=== PATIENT | male | born 1955 | race Caucasian/White ===

== ENCOUNTER 2017-03-11 09:58 | Emergency (ER) | payer OTHER, SELFPAY | END 2017-03-11 11:18 | disposition home or self-care (01) | PROVIDERS: Emergency Provider Nurse Practitioner; Family Provider Internal Medicine; Visit Provider Nurse Practitioner | DX: J32.9 Chronic sinusitis, unspecified (principal); I10 Essential (primary) hypertension | CPT/HCPCS: 96372; 99201 ==

== ENCOUNTER → 2017-07-21 13:41 | Outpatient (CLI) | payer OTHER, SELFPAY | PROVIDERS: PCP Internal Medicine; Visit Provider Nurse Practitioner Family | DX: Z02.4 Encounter for examination for driving license (principal) ==

== ENCOUNTER → 2017-09-16 07:16 | Outpatient (CLI) | payer OTHER, SELFPAY ==
--- NOTE | 2017-09-16 07:20 | CA_ITS ---
PROCEDURE: 2-D M-mode and color Doppler study INDICATIONS FOR THE TEST: Chest pain + COPD Heart Murmur+ Tobacco Smoking Palpitations Fatigue Syncope Edema Hypertension+Diabetes Mellitus Rheumatic Fever SOB GARCIA Obesity Hyperlipidemia Family History HD+ Additional History PATIENT INFORMATION HEIGHT: 73 WEIGHT:220 GENDER: Male B/P:163/87 2-D/M-MODE INTERPRETATION: 2-D MEASUREMENTS OBSERVED VALUES IN CMS Right Ventricular Dimension (RVDd) 3.2 Interventricular Septum (Thickness)(IVsd) 1.6 Left Ventricular Internal Dimensions(LVIDd) 4.6 Left Ventricular Posterior Wall (Thickness)(LVPWd) 1.2 Aortic Root 3.5 Aortic Cusp Separation 1.8 Left Atrial Dimensions (LAD) 4.9 2D 1. Left atrium is mildly enlarged, left ventricle is normal size, mild concentric left ventricular hypertrophy, visually estimated ejection fraction 55% with no obvious regional wall motion abnormality. 2. The right atrium and right ventricle are normal size and contractility. 3. The aortic valve is thickened and calcified leaflet continue to display mobility. 4. The mitral and tricuspid valve are structurally normal. 5. The pulmonic valve is poorly visualized. 6. No significant pericardial effusion noted. DOPPLER INTERROGATION: Doppler interrogation of the aortic, mitral and tricuspid valve reveals presence of mild aortic stenosis, the mean gradient across valve is only 10 mmHg, there is no aortic insufficiency, there is mild mitral and tricuspid regurgitation, tricuspid regurgitant jet velocity is insufficient for calculation of the right ventricular systolic pressure. CONCLUSION: 1. Normal left ventricular size, mild concentric left ventricular hypertrophy, visually estimated ejection fraction 55% with no obvious regional wall motion abnormality, grade 1 diastolic dysfunction seen with tissue Doppler evidence of raised left atrial pressure. 2. Thickened and calcified aortic valve with mild aortic stenosis there is no aortic insufficiency. 3. Mild mitral and tricuspid addition 4. No significant pericardial effusion noted.
--- NOTE | 2017-09-16 07:20 | NM_ITS ---
History and Indications: Hypertension, hyperlipidemia, family history, chest pain and shortness of breath Procedure: Patient exercised on Lionel protocol 7 minutes and 30 seconds, resting heart rate was 58 bpm resting blood pressure 191/91, with exercise maximum heart rate achieved was 1 40 bpm is equal to 88% of the maximum predicted heart rate and a blood pressure was 235/84, test was stopped due to shortness of breath, patient denied any complained of chest pain. Patient has good exercise capacity achieved 10.1mets of workload on treadmill, the blood pressure response to exercise was hypertensive. Electrocardiogram: Resting electrocardiogram showed sinus bradycardia nonspecific T wave changes, with excercise occasional premature ventricular complex seen, there is [address] segment depression noted from the baseline EKG. The EKG portion of the exercise Myoview is positive for ischemia. Cardiac stress and resting SPECT images: Cardiac stress and rest SPECT images were obtained using technetium 99 Myoview 32.5 mCi at stress gated 10.7 mCi at rest. Gated SPECT further analysis of segmental wall motion and calculation of the ejection fraction also done. Cardiac stress and rest SPECT images show uniform myocardial activity without any segmental perfusion abnormality, computer derived ejection fraction is 53% with no obvious regional wall motion abnormality, right ventricle is normal size and contractility. Conclusion: 1. The EKG portion of the exercise Myoview is positive for ischemia, patient has good exercise capacity achieved 10.1mets of workload on treadmill, the blood pressure response to exercise was hypertensive, test was started due to shortness of breath. 2. No obvious scintigraphic evidence of reversible ischemia seen at this level of exercise, computer derived ejection fraction is 53% with no obvious regional wall motion abnormality, right ventricle is normal size and contractility.
== END ==
PROVIDERS: Family Provider Internal Medicine; PCP Internal Medicine; Visit Provider Internal Medicine Cardiovascular Disease
DX: R94.31 Abnormal electrocardiogram [ECG] [EKG] (principal); E78.4 Other hyperlipidemia; I10 Essential (primary) hypertension; R07.9 Chest pain, unspecified; Z82.49 Family history of ischemic heart disease and other diseases of the circulatory system
CPT/HCPCS: 78452; 93017; 93306; A9502

== ENCOUNTER → 2020-03-31 10:06 | Outpatient (CLI) | payer OTHER, SELFPAY ==
--- NOTE | 2020-03-31 10:14 | CA_ITS ---
APPROVED REPORT EXAM: Comprehensive 2D, Doppler, and color-flow Echocardiogram Cardiopulmonary Technician: Lorri Graves CRT Ht: 6 ft 1 in Wt: 230lbs BSA: 2.28 BP: 163/87 mmHg Indications: ABN EKG, CP, MURMUR, HTN, HLD 2D Dimensions Aortic Root 2.70 cm LVOT 1.76 cm (M/F) 1.5-2.5 M-Mode Dimensions RVDd 2.66 cm (0.9-2.6) LA Diam 5.28 cm (1.9-4.0) LVDd 5.06 cm (3.5-5.7) Ao Diam 3.83 cm (2.0-3.7) LVDs 3.53 cm (3.5-5.7) IVSd 2.01 cm (0.6-1.1) PWd 0.80 cm (0.6-1.1) EF (Teich) 57.30% FS 30.20% EDV (Teich) 121.60 mL ESV (Teich) 51.90 mL LV Diastology E Decel Time 197.00 (160-240 msec) E/A Ratio 1.28 MED E' 7.40 (< 7 cm/sec) MED A' 13.80 cm/s E'/MED E' Ratio 13.55 (>14) LAT E' 8.00 (<10 cm/sec) LAT A' 10.30 cm/s E/LAT E' Ratio 12.54 (>14) Aortic Valve LVOT Max 144.00 (70-110 cm/s) LVOT VTI 29.48 cm AoV Peak Tenzin. 231.00 (50-130 cm/s) AO Peak GR. 21.50 mmHg AO Mean GR. 11.20 (<5 mmHg) AO VTI 42.94 (18-25 cm) CHUCKIE (VTI) 1.67 (2.5-4.5 cm2) Mitral Valve MV A Velocity 78.00 (40-130 cm/s) E/A Ratio 1.28 MV Decel. Time 197.00 (160-240 ms) Pulmonary Valve PV Peak Velocity 94.00 (50-150 cm/s) Tricuspid Valve TR P. Velocity 426.00 cm/s RAP Estimate 10.00 mmHg RVSP 82.70 mmHg Left Ventricle Left atrium is mildly enlarged, left ventricle is normal size, mild concentric left ventricular hypertrophy, visually estimated ejection fraction 55% with no regional wall motion abnormality. Diastolic parameters are within normal range. Right Ventricle Right atrium and right ventricle are normal size and contractility. Aortic Valve Aortic valve is thickened and calcified with mean gradient across aortic valve of 13 mmHg, valve area 1.6 cm??? represents mild aortic stenosis, there is no aortic insufficiency. Mitral Valve Mitral valve is grossly normal, there is trace mitral regurgitation. Tricuspid Valve Tricuspid valve grossly normal, there is mild tricuspid regurgitation. Calculated right ventricular systolic pressure is 41 mmHg. Pulmonic Valve Pulmonic valve is poorly visualized. Great Vessels Aortic root is normal size. Pericardium No significant pericardial effusion noted. Conclusion 1. Mildly enlarged left atrium, normal left ventricular size, mild concentric left ventricular hypertrophy, visually estimated ejection fraction 55% with no regional wall motion abnormality, diastolic parameters are within normal range. 2. Thickened and calcified aortic valve with mild aortic stenosis, there is no aortic insufficiency. 3. Mild mitral and tricuspid regurgitation. 4. No significant pericardial effusion noted. Electronically signed by : Ronaldo Cancino, 03/31/2020 11:54:21
== END ==
LOC: RT 10:10
PROVIDERS: PCP Internal Medicine; Visit Provider Internal Medicine
DX: I50.21 Acute systolic (congestive) heart failure (principal)
CPT/HCPCS: 93306

== ENCOUNTER → 2020-09-25 09:19 | Outpatient (CLI) | payer OTHER, SELFPAY ==
--- NOTE | 2020-09-25 | ECG_ITS ---
APPROVED REPORT Exam: Resting ECG HR:126 bpm ECG Measurements Heart Rate 126 AXES QRSd 72 QRS 23 QT 308 T 49 QTc 446 Conclusion Atrial fibrillation with rapid ventricular response Poor R Wave Progression Abnormal ECG Electronically signed by : Colton Rosario, 09/25/2020 16:51:42
== END ==
PROVIDERS: PCP Internal Medicine; Visit Provider Internal Medicine
DX: I49.9 Cardiac arrhythmia, unspecified (principal); I10 Essential (primary) hypertension
CPT/HCPCS: 93005

== ENCOUNTER 2020-10-27 11:56 | Day surgery (SDC) | payer OTHER, SELFPAY ==
[2020-10-27 12:01] VITALS: BMI 33.0
--- NOTE | 2020-10-27 12:08 | CA_ITS ---
APPROVED REPORT EXAM: Comprehensive 2D, Doppler, and color-flow Echocardiogram Roll Weigher: RT Armando(R) Ht: 6 ft 1 in Wt: 250lbs BSA: 2.37 BP: 146/95 mmHg Indications: AFIB, edema, HTN, DM, family history of HD, hyperlipidemia Procedure After obtaining informed consent, patient underwent transesophageal echo in the [facility]. Type of Sedation : Conscious Sedation Sedation was administered by Yvon Galeas C.R.N.A. Transesophageal probe was inserted and advanced into esophagus without difficulty by Dr. Henrik Ramos. The SHIN was performed without complications. Synchronized Cardioversion attempted: Successful Synchronized Cardioversion acheived with 200 Joules after 1 attempt(s). Rhythm following Synchronized Cardioversion: Normal Sinus Rhythm Throughout the procedure, the blood pressure, pulse oximetry, cardiac rhythm, and rate were monitored. The patient tolerated the procedure without adverse effects. Recovery from conscious sedation was uneventful and vital signs were stable. Left Ventricle Left ventricle is normal size, mild concentric left ventricular hypertrophy, estimated ejection fraction 55% with no regional wall motion abnormality. Right Ventricle Right ventricle is normal size and contractility. Atria Left atrium is mildly enlarged. Left atrial appendage is free of thrombus. There is poor appendage flow by spectral Doppler. Right atrium is normal size. Intra-atrial septum is intact, there is no flow across the interatrial septum, agitated saline contrast study fails to identify intracardiac shunt. Aortic Valve Aortic valve is thickened and calcified with mild restriction in the leaflet mobility, there is no aortic insufficiency. Mitral Valve Mitral valve grossly normal, there is mild mitral regurgitation. Tricuspid Valve Tricuspid valve grossly normal, there is mild tricuspid regurgitation. Pulmonic Valve Pulmonic valve is grossly normal. Great Vessels Aortic root is normal size. No dissection or aneurysm noted Pericardium No significant pericardial effusion noted. Conclusion 1. Normal left ventricular size, preserved left ventricular systolic function. 2. No thrombus seen in the left atrium or left atrial pressure. 3. Agitated saline contrast study fails to identify intracardiac shunt. 4. Successful electrical cardioversion to restore sinus rhythm. 5. Other ancillary findings as described above Electronically signed by : Ronaldo Cancino MD 10/28/2020 17:03:17
[2020-10-27 12:20] VITALS: BP 154/92; PULSE 97; RESP 16; TEMP 36.8; O2SAT 97
--- NOTE | 2020-10-27 12:26 | P.PN_ITS ---
[facility] Anesthesia Checklist - Patient Identification Patient Identification: Arm Band - Structural Data Admitted From: Home Planned Operative Procedure/s: SHIN and cardioversion Consent for Planned Operative Procedure(s) Verified: Yes - NPO Status Verified Time NPO: 00:00 - Airway Assessment C-Spine Mobility Assessed: Yes TMJ Mobility Assessed: Yes Dentition: Good Dentition - Neurological Assessment Level of Consciousness: Awake Hx Seizures: No Numbness or tingling in extremities: No - Anesthesia Plan Anesthesia Risk discussed: Yes Anesthesia Plan: Verified ASA Class: III Anesthesia Type: MAC [facility] History I have reviewed the patient's past medical history: Yes Medical History: Reports:: Atrial Fibrillation, Diabetes Mellitus Type 2, Hypertension Denies:: Seizures *Have you ever received a pneumonia vaccine?: No *Have you received a flu vaccine this season?: No Anesthesia experience/problems:: None Laterality Cases: Left: Arthroscopy Knee Other Surgeries: Yes: No Previous Surgery Amputation: No Fractures: No - *Social History Smoking Status: Never smoker Alcohol Intake: never Alcohol Intake Frequency:: other Substance Use Type: denies use *Occupational Status:: employed, disabled *Travel in the last 8 weeks: None Family Hx:: Cancer
[2020-10-27 12:27] LABS: Coronavirus 19, PCR Not Detected (NotDetected); Influenza A, PCR Not Detected (NotDetected); Influenza B, PCR Not Detected (NotDetected)
[2020-10-27 12:28] VITALS: PULSE 104
[2020-10-27 12:29] LABS: Basophils # 0.1 K/mm3 (0-0.2); Basophils % 1.1 % (0.1-2.0); Eosinophils # 0.3 K/mm3 (0.0-0.4); Eosinophils % 3.3 % (0.1-12.0); Hemoglobin 16.1 g/dL (14.1-18.0); Lymphocytes # 2.1 K/mm3 (0.7-4.5); Lymphocytes % 26.2 % (10-50); Mean Corpuscular HGB Conc 34.2 g/dL (31.8-35.4); Mean Corpuscular Hemoglobin 28.6 pg (27.0-31.2); Mean Corpuscular Volume 83.5 fl (80-94); Mean Platelet Volume 7.3 fl (7.4-10.4); Monocytes # 0.8 K/mm3 (0.1-1.0); Monocytes % 9.6 % (1.7-9.3); Neutrophils # 4.9 K/mm3 (1.8-7.8); Neutrophils % 59.9 % (37.0-80.0); Platelet Count 210 K/mm3 (142-424); Red Blood Count 5.63 M/mm3 (4.60-6.20); Red Cell Distribution Width 14.1 % (11.5-17.5); White Blood Count 8.2 K/mm3 (4.8-10.8)
[2020-10-27 12:36] LABS: Chloride 104 mmol/L (98-107); Potassium 4.2 mmoL/L (3.5-5.1)
[2020-10-27 12:37] LABS: Sodium 142 mmol/L (136-145)
[2020-10-27 12:39] LABS: Anion Gap 14.2 mEq/L (5-15); Blood Urea Nitrogen 13 mg/dl (9-20); Carbon Dioxide 28 mmol/L (22.0-30.0); Creatinine Clearance Estimated 121 mL/min (50-200); Estimated Glomerular Filt Rate 75 ml/min (>60); GFR (African American) 91 ML/MIN (>60)
[2020-10-27 12:40] LABS: Calcium 9.2 mg/dl (8.4-10.2); Glucose 128 mg/dl (74-100)
[2020-10-27 12:54] VITALS: BP 126/71; PULSE 95; RESP 18; O2SAT 91
[2020-10-27 12:56] VITALS: PULSE 70
[2020-10-27 13:20] VITALS: BP 109/54; PULSE 74; RESP 13; O2SAT 95
== END 2020-10-27 13:41 | disposition home or self-care (01) ==
LOC: CATHLAB 11:57
PROVIDERS: Internal Medicine; PCP Internal Medicine; Visit Provider Internal Medicine Cardiovascular Disease
DX: I48.91 Unspecified atrial fibrillation (principal); E78.5 Hyperlipidemia, unspecified; I10 Essential (primary) hypertension; Z82.49 Family history of ischemic heart disease and other diseases of the circulatory system; E11.9 Type 2 diabetes mellitus without complications; Z79.84 Long term (current) use of oral hypoglycemic drugs; Z79.01 Long term (current) use of anticoagulants; Z79.899 Other long term (current) drug therapy; Z20.822 Contact with and (suspected) exposure to COVID-19
CPT/HCPCS: 80048; 85025; 92960; 93312; U0003

== ENCOUNTER → 2020-11-09 06:57 | Outpatient (CLI) | payer SELFPAY ==
--- NOTE | 2020-11-09 06:58 | CT_ITS ---
PROCEDURE: CT HEART W CALCIUM SCORE CLINICAL HISTORY: eval for cad COMPARISON: No exams were available for comparison TECHNIQUE: Axial images obtained with sagittal and coronal reformats. All CT scans at the facility use one or more dose reduction, viz: automated exposure control, ma/kV adjustment per patient size (including targeted exams where dose is matched to indication, i.e. head), or iterative reconstruction technique. FINDINGS: Coronary artery calcium score is 392. Moderate calcific plaque burden with high cardiovascular disease risk. Aortic valve calcifications incidentally noted. There is mild nonspecific thickening of the distal esophagus. Minimal atelectatic or fibrotic changes are present in the lung bases. Calcified nodes are present in the right hilum. IMPRESSION: Moderate calcific plaque burden with high cardiovascular disease risk Dictated by: Myron Sosa MD 11/09/2020 10:15 Myron Sosa MD in [place] 11/09/2020 10:15
== END ==
PROVIDERS: PCP Internal Medicine; Visit Provider Internal Medicine Cardiovascular Disease
DX: Z13.6 Encounter for screening for cardiovascular disorders (principal); R94.31 Abnormal electrocardiogram [ECG] [EKG]; I48.91 Unspecified atrial fibrillation; R60.0 Localized edema; E78.2 Mixed hyperlipidemia; I10 Essential (primary) hypertension; R40.0 Somnolence; Z82.49 Family history of ischemic heart disease and other diseases of the circulatory system
CPT/HCPCS: 75571

== ENCOUNTER → 2020-12-19 06:49 | Outpatient (CLI) | payer OTHER, SELFPAY ==
--- NOTE | 2020-12-19 | CA_ITS ---
APPROVED REPORT Exam: Pharmacologic Technologist: Leatha Fulton Ht: 6 ft 1 in Wt: 250 lbs BSA: 2.37 m2 HR: 92 bpm BP: 135/81 mmHg Indications: Chest pain Medical History Medications: Aspirin,,,,, Metoprolol,,,,, Metformin,,,,, Losartan,,,,, XaRELTO,,,,, Lipitor,,,,, Aldactone,,,,, Stress Test Details Test: LEXISCAN HR Resting HR: 100 bpm Max Heart Rate (APMHR): 157.696845 bpm Max HR Achieved: 122 bpm Target HR (85% APMHR): 133.920411 bpm % of APMHR: 77.71 BP Resting BP: 135/81 mmHg Max BP: 142/73 mmHg ECG Resting ECG: atrial fibrillation, controlled ventricular response, PVC vs. aberrantly conducted beat. Clinical Exercise duration: 04:01 min Highest Stage Achieved: Exercise capacity: 1.0 METs Stress ECG Conclusion Symptoms: Mild shortness of air, dizziness. No chest pain. Arrhythmias/Ectopy: Occasional PVC or aberrantly conducted beat. ST-T Changes: NS T wave changes. Conclusion: Unremarkable Lexiscan stress. Myoview images reported separately. Electronically signed by : Ronaldo Cancino MD 12/19/2020 22:31:45
--- NOTE | 2020-12-19 06:54 | NM_ITS ---
APPROVED REPORT Exam: Nuclear Stress Test Indication: palpitations..a-fib Patient Location: Outpatient Stress Tech: Leatha Fulton [place] Tech:Xochitl Oviedo ABIAyala RT(R)(N) Ht: 6 ft 1 in Wt: 248 lbs HR: 92 bpm BP: 135/81 mmHg BSA: 2.36 m2 BMI: 32.7 History: palpitations..a-fib Procedure: Patient received a 0.4 mg of intravenous Lexiscan, resting heart rate 92 bpm, resting blood pressure 135/81 mmHg, with Lexiscan maximum heart rate achived was 115 bpm which is Less than 85 % of the maximum predicted heart rate and blood pressure was 142/73 mmHg. With Lexiscan, patient denied any complaint of chest pain. Electrocardiogram Resting electrocardiogram shows atrial fibrillation, with Lexiscan there is less than 1.[address] segment depression noted from the baseline EKG. The EKG portion of the Lexiscan is nondiagnostic. Cardiac Stress and Resting SPECT Images: Cardiac Stress and Resting SPECT images were obtained using technetium 99m Myoview 33.0 mCi stress and 10.29 mCi at rest. Gated SPECT for analysis of segmental wall motion and calculation of the ejection fraction also done. Prone images were also obtained. Cardiac stress and resting SPECT images show reversible ischemia involving the inferior wall, computer derived ejection fraction is 40% with moderate inferior wall hypokinesis. Right ventricle is mildly enlarged with normal contractility. Conclusion: 1. The EKG portion of the Lexiscan is nondiagnostic. 2. Scintigraphic evidence of reversible ischemia involving the inferior wall, computer derived ejection fraction is 40% with segmental wall motion abnormality described above, right ventricle is mildly enlarged with normal contractility. 3. Abnormal Lexiscan Myoview study. Electronically signed by : Ronaldo Cancino MD 12/19/2020 22:40:48
== END ==
LOC: RAD 06:52
PROVIDERS: PCP Internal Medicine; Visit Provider Internal Medicine Cardiovascular Disease
DX: R06.00 Dyspnea, unspecified (principal); I48.19 Other persistent atrial fibrillation; R94.31 Abnormal electrocardiogram [ECG] [EKG]; G47.33 Obstructive sleep apnea (adult) (pediatric); R40.0 Somnolence; R06.83 Snoring
CPT/HCPCS: 78452; 93017; 95806; A9502; J2785

== ENCOUNTER → 2020-12-27 14:45 | Outpatient (CLI) | payer OTHER, SELFPAY ==
[2020-12-27 15:40] LABS: Chloride 104 mmol/L (98-107); Potassium 4.2 mmoL/L (3.5-5.1); Sodium 139 mmol/L (136-145)
[2020-12-27 15:42] LABS: Basophils # 0.1 K/mm3 (0-0.2); Basophils % 1.7 % (0.1-2.0); Eosinophils # 0.2 K/mm3 (0.0-0.4); Eosinophils % 2.6 % (0.1-12.0); Hematocrit 43.8 % (42.0-52.0); Hemoglobin 14.6 g/dL (14.1-18.0); Lymphocytes # 1.9 K/mm3 (0.7-4.5); Lymphocytes % 22.6 % (10-50); Mean Corpuscular HGB Conc 33.3 g/dL (31.8-35.4); Mean Corpuscular Hemoglobin 29.8 pg (27.0-31.2); Mean Corpuscular Volume 89.5 fl (80-94); Mean Platelet Volume 7.8 fl (7.4-10.4); Monocytes # 0.6 K/mm3 (0.1-1.0); Monocytes % 6.7 % (1.7-9.3); Neutrophils # 5.5 K/mm3 (1.8-7.8); Neutrophils % 66.3 % (37.0-80.0); Platelet Count 236 K/mm3 (142-424); Red Blood Count 4.89 M/mm3 (4.60-6.20); Red Cell Distribution Width 14.8 % (11.5-17.5); White Blood Count 8.3 K/mm3 (4.8-10.8)
[2020-12-27 15:43] LABS: Anion Gap 13.2 mEq/L (5-15); Blood Urea Nitrogen 11 mg/dl (9-20); Calcium 8.8 mg/dl (8.4-10.2); Carbon Dioxide 26 mmol/L (22.0-30.0); Estimated Glomerular Filt Rate 98 ml/min (>60); GFR (African American) 118 ML/MIN (>60); Glucose 241 mg/dl (74-100)
== END ==
PROVIDERS: Visit Provider Internal Medicine Cardiovascular Disease
DX: Z01.812 Encounter for preprocedural laboratory examination (principal); Z11.52 Encounter for screening for COVID-19; I20.8 Other forms of angina pectoris; R06.00 Dyspnea, unspecified; I48.19 Other persistent atrial fibrillation; R93.1 Abnormal findings on diagnostic imaging of heart and coronary circulation; R94.31 Abnormal electrocardiogram [ECG] [EKG]; R94.39 Abnormal result of other cardiovascular function study; I10 Essential (primary) hypertension; E13.69 Other specified diabetes mellitus with other specified complication; E78.2 Mixed hyperlipidemia; R40.0 Somnolence; Z79.84 Long term (current) use of oral hypoglycemic drugs
CPT/HCPCS: 80048; 85025; C9803; U0003; U0005

== ENCOUNTER 2020-12-28 08:44 | Day surgery (SDC) | payer OTHER, SELFPAY ==
[2020-12-28] VITALS (15 sets, daily range): BP systolic 111–161; BP diastolic 58–107; PULSE 83–110; RESP 18–19; O2SAT 95–100; BMI 33.2
--- NOTE | 2020-12-28 07:11 | IR_ITS ---
APPROVED REPORT Patient Location: Outpatient PROCEDURES Left heart catheterization Left ventriculogram Selective coronary angiogram INDICATION Abnormal stress test, Angina pectoris Informed consent was obtained prior to the procedure. COMPLICATIONS NONE Estimated Blood Loss: LESS THAN 10 ML TECHNIQUE One percent lidocaine used to anesthetize the right anterior aspect of the wrist. The right radial artery was accessed via the Seldinger technique. A 6 Occitan sheath was placed in the right radial artery. 2.5 mg of verapamil, 800 mcg of nitroglycerin, 1mg Lidocaine and 5000 U Heparin were given through the arterial sheath. The trap catheter was also used to perform left heart catheterization, left ventriculogram and selective coronary angiogram. At the end of the procedure the sheath was removed good hemostasis was achieved using Traclet band, patient was transferred to the postop holding area in stable condition. ANGIOGRAPHIC RESULTS The left main artery Normal The left anterior descending artery Mild 10% luminal irregularities The circumflex artery Mild 10% luminal irregularities The right coronary artery Large dominant mild 10% luminal irregularities The CORDOVA ventriculogram reveals Horizontal heart with preserved ejection fraction estimate 55% The left ventricular end-diastolic pressure 15 to 20 mmHg IMPRESSION Mild nonflow limiting coronary disease Preserved ejection fraction Borderline elevated LVEDP PLAN 1. Medical management Electronically signed by : Claudio Irwin MD 12/28/2020 14:43:48
--- NOTE | 2020-12-28 12:53 | SUR.PHASEII ---
NO BLEEDING AT R RADIAL SITE. RADIALBAND IN PLACE, RELEASING 3 CC AT 1230 AND 1245 WITHOUT PROBLEM. NO C/O PAIN/ PT HAS EATEN LUNCH AND IS SITTING UP IN BED RESTING WITH EYES CLOSED.
--- NOTE | 2020-12-28 13:13 | PC.NURSE ---
SMALL DROP OF BLOOD NOTED AT SITE, NO AIR REMOVED, WILL CONTINUE TO MONITOR.
--- NOTE | 2020-12-28 13:47 | PC.NURSE ---
ADDED 2CC OF AIR BACK IN AT 1330 D/T SMALL AMT OF OOZING. 1345 NO MORE OOZING-REMOVED 2CC, WILL MONITOR.
--- NOTE | 2020-12-28 14:08 | SUR.PHASEII ---
DISCHARGE INSTRUCTIONS REVIEWED AND COPIES PROVIDED, PT AND FAMILY MEMBER VERBALIZE UNDERSTANDING.
--- NOTE | 2020-12-28 14:18 | SUR.PHASEII ---
R RADIAL SITE WITHOUT BLEEDING, TOLERATING WELL.
--- NOTE | 2020-12-28 14:36 | SUR.PHASEII ---
REPORT FOR PT CARE PASSED TO Alen BOBO RN.
== END 2020-12-28 14:50 | disposition home or self-care (01) ==
LOC: CATHLAB 08:46
PROVIDERS: PCP Internal Medicine; Visit Provider Internal Medicine
DX: I25.118 Atherosclerotic heart disease of native coronary artery with other forms of angina pectoris (principal); E11.9 Type 2 diabetes mellitus without complications; E78.2 Mixed hyperlipidemia; I10 Essential (primary) hypertension; Z79.84 Long term (current) use of oral hypoglycemic drugs; I48.91 Unspecified atrial fibrillation; Z79.01 Long term (current) use of anticoagulants; Z79.899 Other long term (current) drug therapy
CPT/HCPCS: 93458; 99152; 99153; C1725; C1760; C1769; J1644; Q9967

== ENCOUNTER 2021-06-23 10:03 | Emergency (ER) | payer BC, SELFPAY ==
--- NOTE | 2021-06-23 | ECG_ITS ---
APPROVED REPORT Exam: Resting ECG HR:69 bpm ECG Measurements Heart Rate 69 AXES MD 196 P 62 QRSd 89 QRS -12 QT 299 T 62 QTc 318 Conclusion SINUS RHYTHM Poor r wave progression ABNORMAL ECG UNCONFIRMED REPORT Electronically signed by : Tomás Rivera MD 06/24/2021 09:06:21
[2021-06-23 10:03] VITALS: BP 130/98; PULSE 85; RESP 16; TEMP 36.8; O2SAT 98; BMI 36.9
--- NOTE | 2021-06-23 10:13 | HMH.EDLOEX ---
ED Disposition Clinical Impression: Contusion of lower leg, left Qualifiers: Encounter type: initial encounter Qualified Code(s): S80.12XA - Contusion of left lower leg, initial encounter Disposition: Home, Self-Care Condition on Discharge: Fair Additional Instructions: Keep your affected leg elevated. You may wrap it in an elastic wrap such as an Henry wrap as needed. Make sure you follow-up with your rn traveling on Friday as scheduled. I recommend that you stop taking the blood thinner Xarelto for the next 3 days. But do not stop taking it longer than 3 days unless you have been cleared to do so by your rn traveling. Return to the emergency department immediately if you worsen in any way or if you notice that your heart is beating irregularly. Referrals: Colton Rosario [Primary Care Provider] - - Critical Care Critical Care Time: No Attestation: On , the high probability of a clinically significant, sudden or life threatening deterioration of the following system(s) required my full and direct attention, intervention and personal management. The time I documented below is in addition to time spent performing reported procedures but includes the following listed in this critical care notation. Medical Decision Making - Medical Records Medical records reviewed: Yes: I reviewed the patient's medical records. - Marcello Inquiry Pt receiving controlled substance: No - ECG Data Tracing #2 I reviewed this ECG and interpreted as documented below: The patient is EKG was done at 1020. It shows a normal sinus rhythm with a ventricular rate of 69 bpm. Q waves in V1 and V2. There is no evidence of acute ischemia. The patient is in sinus rhythm and not atrial fibrillation. Normal Sinus Rhythm: Yes Medical Decision Narrative: Patient presents to the emergency department after having struck his lower extremity against a hitch on a trailer. This happened 2 days ago. Since then the patient has been complaining of increased swelling and ecchymosis around the lower leg and ankle. The patient is on Xarelto due to atrial fibrillation but has been recently cardioverted. An EKG was performed and shows normal sinus rhythm. Therefore, I believe that it is safe for the patient to stop Xarelto for the next 3 days and follow-up with his primary care physician/rn traveling as scheduled this Friday. I advised the patient to tell his doctors on follow-up that he was told to stop Xarelto for 3 days due to his injury and continued swelling. She has agreed to do so. Lower Extremity Injury HPI - General Chief Complaint: Extremity Injury, Lower Stated Complaint: AO 4/7 leg swelling Time Seen by Provider: 06/23/21 10:13 Mode of Arrival: Ambulatory Source of Information: Patient Limitations: No Limitations - History of Present Illness HPI Narrative: The patient presents to the emergency department complaining of lower extremity swelling on the left side after having struck his knee against a trailer hitch 2 days ago. The patient is currently on Xarelto due to atrial fibrillation. He has recently been cardioverted and believes that he is in sinus rhythm. - Related Data Home Medications Medication Instructions Recorded Confirmed aspirin 81 mg tablet,delayed 81 mg PO DAILY 10/19/20 04/06/21 release metformin 500 mg tablet 500 mg PO BID tab 10/19/20 04/06/21 Losartan Potassium [Cozaar 100mg 100 mg PO QDAY 12/28/20 04/06/21 Tablets] Spironolactone [Spironolactone 25 mg PO DAILY 12/28/20 04/06/21 25mg Tablet] metoprolol succinate 100 mg 50 mg PO BID tab 04/06/21 04/06/21 tablet,extended release 24 hr Previous Rx's Medication Instructions Recorded atorvastatin 40 mg tablet 40 mg PO HS #90 tab 04/06/21 rivaroxaban 20 mg tablet 20 mg PO DAILY #30 tab 04/06/21 Allergies Allergy/AdvReac Type Severity Reaction Status Date / Time No Known Allergies Allergy Verified 04/06/21 09:15 [facility] History - Hepat
[2021-06-23 10:36] VITALS: BP 130/98; PULSE 85; RESP 16; TEMP 36.8; O2SAT 98
== END 2021-06-23 11:09 | disposition home or self-care (01) ==
PROVIDERS: Emergency Provider Emergency Medicine; PCP Internal Medicine
DX: S80.12XA Contusion of left lower leg, initial encounter (principal); M79.89 Other specified soft tissue disorders; R94.39 Abnormal result of other cardiovascular function study; I48.91 Unspecified atrial fibrillation; I20.9 Angina pectoris, unspecified; E11.9 Type 2 diabetes mellitus without complications; Z79.01 Long term (current) use of anticoagulants; Z79.82 Long term (current) use of aspirin; Z79.84 Long term (current) use of oral hypoglycemic drugs; Z79.899 Other long term (current) drug therapy; W22.8XXA Striking against or struck by other objects, initial encounter
CPT/HCPCS: 93005; 99284

== ENCOUNTER → 2021-07-02 10:19 | Outpatient (CLI) | payer BC, SELFPAY ==
--- NOTE | 2021-07-02 10:27 | XR_ITS ---
FINAL REPORT CLINICAL HISTORY: LT LEG INJURY,PAIN,REDNESS,SWELLING FINDINGS: Two views of the left tibia-fibula demonstrate no acute fracture or dislocation. The joint spaces appear normal. There are calcaneal spurs. No soft tissue abnormality is seen. IMPRESSION: No acute process. Reviewed, Interpreted and Dictated by Jarad Hwang III, MD Transcribed by Irving Calderón Authenticated by Jarad Hwang III, MD on 07/02/2021 11:41:34 AM [facility]
== END ==
LOC: RAD 10:20
PROVIDERS: PCP Internal Medicine; Visit Provider Internal Medicine
DX: S89.92XA Unspecified injury of left lower leg, initial encounter (principal)
CPT/HCPCS: 73590

== ENCOUNTER → 2021-07-06 10:55 | Outpatient (CLI) | payer BC, SELFPAY ==
--- NOTE | 2021-07-06 11:04 | CA_ITS ---
APPROVED REPORT EXAM: Comprehensive 2D, Doppler, and color-flow Echocardiogram Lead Neurodiagnostic Technologist: Lorri Graves CRT Ht: 6 ft 1 in Wt: 260lbs BSA: 2.41 BP: 145/56 mmHg Indications: Abnormal ECG, Atrial Fibrillation, Diabetes, Peripheral Edema, Hypertension/HDD, had recent ablation 2D Dimensions LVOT 2.07 cm (M/F) 1.5-2.5 LA Volume 105.50 mL LA Volume Index 43.80 mL/m2 (M/F) 16-34 M-Mode Dimensions RVDd 3.26 cm (0.9-2.6) LA Diam 4.64 cm (1.9-4.0) LVDd 5.46 cm (3.5-5.7) Ao Diam 4.07 cm (2.0-3.7) LVDs 3.47 cm (3.5-5.7) IVSd 1.65 cm (0.6-1.1) PWd 0.97 cm (0.6-1.1) EF (Teich) 65.70% FS 36.40% EDV (Teich) 145.00 mL TAPSE 2.33 (<1.7) ESV (Teich) 49.80 mL LV Diastology MED E' 6.90 (< 7 cm/sec) MED A' 4.70 cm/s LAT E' 8.00 (<10 cm/sec) LAT A' 4.70 cm/s Aortic Valve LVOT Max 143.00 (70-110 cm/s) LVOT VTI 28.70 cm AoV Peak Tenzin. 257.00 (50-130 cm/s) AO Peak GR. 26.50 mmHg AO Mean GR. 13.60 (<5 mmHg) AO VTI 45.87 (18-25 cm) CHUCKIE (VTI) 2.11 (2.5-4.5 cm2) Pulmonary Valve PV Peak Velocity 167.00 (50-150 cm/s) Tricuspid Valve TR P. Velocity 367.00 cm/s RAP Estimate 10.00 mmHg RVSP 63.80 mmHg Left Ventricle Left atrium is mildly enlarged, left ventricle is normal size, mild concentric left ventricular hypertrophy, estimated ejection fraction 55% with no regional wall motion abnormality, grade 1 diastolic dysfunction seen without tissue Doppler evidence of raise left atrial pressure. Right Ventricle Right atrium and right ventricle are mildly enlarged with normal contractility. Aortic Valve Aortic valve is thickened and calcified with mild restriction in the leaflet mobility, mean gradient across aortic valve is 18 mmHg, valve area is 1.8 cm represents mild aortic stenosis. There is no significant aortic insufficiency. Mitral Valve Mitral valve grossly normal, there is mild mitral regurgitation. Tricuspid Valve Tricuspid grossly normal, there is mild tricuspid regurgitation, calculated right ventricular systolic pressure is 56 mmHg. Pulmonic Valve Pulmonic valve is poorly visualized. Great Vessels Aortic root is normal size. Inferior vena cava is poorly visualized. Pericardium No significant pericardial effusion noted. Conclusion 1. Biatrial enlargement, normal left ventricular size, mild concentric left ventricular hypertrophy, estimated ejection fraction 55% with no regional wall motion normality grade 1 diastolic dysfunction seen without tissue Doppler evidence of raise left atrial pressure. 2. Mildly enlarged right ventricle with normal contractility. 3. Thickened and calcified aortic valve with mild aortic stenosis, there is no aortic insufficiency. 4. Mild mitral and tricuspid regurgitation, calculated right ventricular systolic pressure is 56 mmHg. 5. No significant pericardial effusion. 6. Inferior vena cava is poorly visualized. Electronically signed by : Ronaldo Cancino MD 07/06/2021 12:56:49
--- NOTE | 2021-07-06 11:04 | CA_ITS ---
FINAL REPORT CLINICAL HISTORY: dsypnea/leg swelling. Patient states he bumped his left leg 2 weeks ago on a trailer hitch. It became red and swollen so came to ER. He had heart ablation 3-4 weeks ago. Legs were treated for cellulitis. Patient states he doesn't see any improvement. FINDINGS: Color Doppler, duplex Doppler and compression sonography of the bilateral lower extremities was performed. There is no evidence of deep venous thrombosis from the level of the groin to the calf. The deep veins are patent and compressible. IMPRESSION: No evidence of deep venous thrombosis bilateral lower extremities. Reviewed, Interpreted and Dictated by Jarad Hwang III, MD Transcribed by Aura Hair Authenticated by Jarad Hwang III, MD on 07/06/2021 12:49:15 PM [facility]
[2021-07-06 14:23] LABS: Alanine Aminotransferase 31 U/L (12-78); Alkaline Phosphatase 95 U/L (38-126); Aspartate Amino Transferase 43 U/L (17-59); Bilirubin,Direct 0.2 mg/dl (0.0-0.4); Bilirubin,Indirect 0.2 mg/dL (0.0-0.9); Bilirubin,Total 0.4 mg/dl (0.2-1.3); Bilirubin,Unconjugated 0.2 mg/dL (0.0-1.1); Chol/HDL Ratio 3.9 (1-3.5); Cholesterol 117 mg/dl (140-200); HDL Cholesterol 30 mg/dl (40-60); Total Protein,Serum 6.5 g/dl (6.3-8.2); Triglycerides 218 mg/dl (30-150); VLDL Cholesterol 44 mg/dL (0-40)
[2021-07-06 14:34] LABS: Direct LDL Cholesterol 48.31 mg/dL (100-129)
== END ==
LOC: LAB 10:56
PROVIDERS: PCP Internal Medicine; Visit Provider Internal Medicine Cardiovascular Disease
DX: R06.00 Dyspnea, unspecified (principal); I48.20 Chronic atrial fibrillation, unspecified; I10 Essential (primary) hypertension; E78.2 Mixed hyperlipidemia; R60.0 Localized edema; M79.604 Pain in right leg; M79.605 Pain in left leg; R94.31 Abnormal electrocardiogram [ECG] [EKG]; Z82.49 Family history of ischemic heart disease and other diseases of the circulatory system; Z98.890 Other specified postprocedural states
CPT/HCPCS: 36415; 80061; 80076; 93306; 93970

== ENCOUNTER → 2021-07-09 14:15 | Outpatient (CLI) | payer BC, SELFPAY ==
[2021-07-09 16:59] LABS: Creatinine,Urine Random 197 mg/dL (Not Estab.); Hemoglobin A1C 6.8 % (4.0-6.0)
[2021-07-09 17:00] LABS: Microalbumin/Creatinine Ratio 13.5
[2021-07-09 17:07] LABS: Chloride 106 mmol/L (98-107)
[2021-07-09 17:08] LABS: Potassium 4.4 mmoL/L (3.5-5.1); Sodium 139 mmol/L (136-145)
[2021-07-09 17:10] LABS: Alanine Aminotransferase 33 U/L (12-78); Anion Gap 12.4 mEq/L (5-15); Aspartate Amino Transferase 49 U/L (17-59); Blood Urea Nitrogen 16 mg/dl (9-20); Carbon Dioxide 25 mmol/L (22.0-30.0); Estimated Glomerular Filt Rate 85 ml/min (>60); GFR (African American) 103 ML/MIN (>60)
[2021-07-09 17:11] LABS: Albumin Level 4.1 g/dl (3.5-5.0); Albumin/Globulin Ratio 1.6 (1.1-1.8); Alkaline Phosphatase 88 U/L (38-126); Bilirubin,Total 0.5 mg/dl (0.2-1.3); Calcium 9.1 mg/dl (8.4-10.2); Chol/HDL Ratio 4.5 (1-3.5); Cholesterol 144 mg/dl (140-200); Globulin 2.6 g/dL (1.3-3.2); Glucose 137 mg/dl (74-100); HDL Cholesterol 32 mg/dl (40-60); Total Protein,Serum 6.7 g/dl (6.3-8.2); Triglycerides 275 mg/dl (30-150); VLDL Cholesterol 55 mg/dL (0-40)
[2021-07-09 17:22] LABS: Direct LDL Cholesterol 63.06 mg/dL (100-129)
== END ==
PROVIDERS: PCP Internal Medicine; Visit Provider Internal Medicine
DX: I25.110 Atherosclerotic heart disease of native coronary artery with unstable angina pectoris (principal); I10 Essential (primary) hypertension; E78.5 Hyperlipidemia, unspecified; E11.59 Type 2 diabetes mellitus with other circulatory complications; L03.116 Cellulitis of left lower limb; Z79.84 Long term (current) use of oral hypoglycemic drugs
CPT/HCPCS: 80053; 80061; 82043; 82570; 83036

== ENCOUNTER → 2021-09-07 09:35 | Outpatient (CLI) | payer BC, SELFPAY ==
[2021-09-07 11:18] LABS: Anion Gap 11.4 mEq/L (5-15); Blood Urea Nitrogen 14 mg/dl (9-20); Calcium 9.1 mg/dl (8.4-10.2); Carbon Dioxide 27 mmol/L (22.0-30.0); Chloride 105 mmol/L (98-107); Estimated Glomerular Filt Rate 85 ml/min (>60); GFR (African American) 103 ML/MIN (>60); Glucose 143 mg/dl (74-100); Potassium 4.4 mmoL/L (3.5-5.1); Sodium 139 mmol/L (136-145)
[2021-09-07 11:27] LABS: NT Pro Brain Natriuretic Pep. 153 pg/mL (0-125)
== END ==
PROVIDERS: PCP Internal Medicine; Visit Provider Internal Medicine Cardiovascular Disease
DX: R06.00 Dyspnea, unspecified (principal); I11.0 Hypertensive heart disease with heart failure; I50.9 Heart failure, unspecified; I48.20 Chronic atrial fibrillation, unspecified; E78.5 Hyperlipidemia, unspecified; R60.0 Localized edema; R94.31 Abnormal electrocardiogram [ECG] [EKG]; Z82.49 Family history of ischemic heart disease and other diseases of the circulatory system; Z98.890 Other specified postprocedural states
CPT/HCPCS: 36415; 80048; 83880

== ENCOUNTER → 2022-01-08 12:33 | Outpatient (CLI) | payer BC, SELFPAY ==
[2022-01-08 13:18] LABS: Microscopic, Urine URINE MICROSCOPIC (MICROSCOPIC)
[2022-01-08 13:56] LABS: Appearance,Urine CLEAR (Clear); Bilirubin,Urine Negative (Negative); Blood, Urine 2+ (Negative); Color,Urine YELLOW (Yellow); Glucose,Urine (UA) Negative (Negative); Ketones,Urine Negative (Negative); Leukocyte Esterase,Urine Negative (Negative); Nitrate,Urine Negative (Negative); PH,Urine 5.5 (5.0-8.5); Protein,Urine Negative (Negative); Specific Gravity, Urine >= 1.030 (1.005-1.030); Urobilinogen,Urine 0.2 EU/dl (0.2)
[2022-01-08 14:02] LABS: Hemoglobin A1C 7.6 % (4.0-6.0)
[2022-01-08 14:05] LABS: Creatinine,Urine Random 151 mg/dL (Not Estab.)
[2022-01-08 14:09] LABS: Microalbumin/Creatinine Ratio 28.2
[2022-01-08 14:20] LABS: Bacteria,Urine Trace /lpf; Squamous Epithelial Cell,Urine Occasional #/hpf (0-5)
[2022-01-08 14:25] LABS: Chloride 101 mmol/L (98-107); Sodium 139 mmol/L (136-145)
[2022-01-08 14:26] LABS: Potassium 4.8 mmoL/L (3.5-5.1)
[2022-01-08 14:28] LABS: Alanine Aminotransferase 30 U/L (12-78); Albumin Level 4.3 g/dl (3.5-5.0); Albumin/Globulin Ratio 1.7 (1.1-1.8); Alkaline Phosphatase 100 U/L (38-126); Anion Gap 15.8 mEq/L (5-15); Aspartate Amino Transferase 45 U/L (17-59); Bilirubin,Total 0.6 mg/dl (0.2-1.3); Blood Urea Nitrogen 11 mg/dl (9-20); Carbon Dioxide 27 mmol/L (22.0-30.0); Estimated Glomerular Filt Rate 85 ml/min (>60); GFR (African American) 103 ML/MIN (>60); Globulin 2.6 g/dL (1.3-3.2); Total Protein,Serum 6.9 g/dl (6.3-8.2)
[2022-01-08 14:29] LABS: Calcium 8.5 mg/dl (8.4-10.2); Cholesterol 128 mg/dl (140-200); Glucose 139 mg/dl (74-100); HDL Cholesterol 32 mg/dl (40-60); Triglycerides 181 mg/dl (30-150); VLDL Cholesterol 36 mg/dL (0-40)
[2022-01-08 14:40] LABS: Direct LDL Cholesterol 57.07 mg/dL (100-129)
== END ==
PROVIDERS: PCP Internal Medicine; Visit Provider Internal Medicine
DX: E11.59 Type 2 diabetes mellitus with other circulatory complications (principal); E78.5 Hyperlipidemia, unspecified; I25.10 Atherosclerotic heart disease of native coronary artery without angina pectoris; I10 Essential (primary) hypertension; R31.21 Asymptomatic microscopic hematuria; Z79.84 Long term (current) use of oral hypoglycemic drugs
CPT/HCPCS: 80053; 80061; 81001; 82043; 82570; 83036

== ENCOUNTER → 2022-01-28 11:31 | Outpatient (CLI) | payer BC, SELFPAY | PROVIDERS: PCP Internal Medicine; Visit Provider Internal Medicine | DX: Z20.822 Contact with and (suspected) exposure to COVID-19 (principal) | CPT/HCPCS: C9803; U0003; U0005 ==

== ENCOUNTER → 2022-07-08 12:46 | Outpatient (CLI) | payer BC, SELFPAY ==
[2022-07-08 14:16] LABS: Basophils # 0.1 K/mm3 (0-0.2); Basophils % 0.9 % (0.1-2.0); Eosinophils # 0.4 K/mm3 (0.0-0.4); Eosinophils % 4.7 % (0.1-12.0); Hematocrit 43.6 % (42.0-52.0); Hemoglobin 14.5 g/dL (14.1-18.0); Lymphocytes # 1.4 K/mm3 (0.7-4.5); Lymphocytes % 18.5 % (10-50); Mean Corpuscular HGB Conc 33.1 g/dL (31.8-35.4); Mean Corpuscular Hemoglobin 29.2 pg (27.0-31.2); Mean Corpuscular Volume 88.1 fl (80-94); Mean Platelet Volume 8.7 fl (7.4-10.4); Monocytes # 0.7 K/mm3 (0.1-1.0); Monocytes % 9.2 % (1.7-9.3); Neutrophils # 5.2 K/mm3 (1.8-7.8); Neutrophils % 66.7 % (37.0-80.0); Platelet Count 243 K/mm3 (142-424); Red Blood Count 4.95 M/mm3 (4.60-6.20); Red Cell Distribution Width 14.1 % (11.5-17.5); White Blood Count 7.7 K/mm3 (4.8-10.8)
[2022-07-08 14:34] LABS: Alanine Aminotransferase 35 U/L (12-78); Albumin Level 4.3 g/dl (3.5-5.0); Albumin/Globulin Ratio 1.7 (1.1-1.8); Alkaline Phosphatase 85 U/L (38-126); Anion Gap 13.5 mEq/L (5-15); Aspartate Amino Transferase 52 U/L (17-59); Bilirubin,Total 0.9 mg/dl (0.2-1.3); Blood Urea Nitrogen 13 mg/dl (9-20); Calcium 8.6 mg/dl (8.4-10.2); Carbon Dioxide 26 mmol/L (22.0-30.0); Chloride 102 mmol/L (98-107); Chol/HDL Ratio 3.3 (1-3.5); Cholesterol 101 mg/dl (140-200); Estimated Glomerular Filt Rate 85 ml/min (>60); GFR (African American) 102 ML/MIN (>60); Globulin 2.5 g/dL (1.3-3.2); Glucose 160 mg/dl (74-100); HDL Cholesterol 31 mg/dl (40-60); Potassium 4.5 mmoL/L (3.5-5.1); Sodium 137 mmol/L (136-145); Total Protein,Serum 6.8 g/dl (6.3-8.2); Triglycerides 117 mg/dl (30-150); VLDL Cholesterol 23 mg/dL (0-40)
[2022-07-08 14:45] LABS: Direct LDL Cholesterol 52.75 mg/dL (100-129)
[2022-07-08 15:05] LABS: Prostate Specific Ag Screen 0.3 ng/ml (0.0-4.0)
[2022-07-08 16:11] LABS: Hemoglobin A1C 7.9 % (4.0-6.0)
== END ==
PROVIDERS: PCP Internal Medicine; Visit Provider Internal Medicine
DX: E11.59 Type 2 diabetes mellitus with other circulatory complications (principal); I10 Essential (primary) hypertension; I48.0 Paroxysmal atrial fibrillation; E78.5 Hyperlipidemia, unspecified; Z79.84 Long term (current) use of oral hypoglycemic drugs; Z12.5 Encounter for screening for malignant neoplasm of prostate
CPT/HCPCS: 80053; 80061; 83036; 85025; G0103

== ENCOUNTER 2023-09-24 09:00 | Outpatient (CLI) | payer MEDICARE, OTHER, SELFPAY ==
[2023-09-24 17:52] LABS: Basophils # 0.1 K/mm3 (0-0.2); Basophils % 0.8 % (0.1-2.0); Eosinophils # 0.2 K/mm3 (0.0-0.4); Eosinophils % 3.7 % (0.1-12.0); Hematocrit 44.5 % (42.0-52.0); Hemoglobin 14.6 g/dL (14.1-18.0); Lymphocytes # 1.3 K/mm3 (0.7-4.5); Lymphocytes % 22.1 % (10-50); Mean Corpuscular HGB Conc 32.9 g/dL (31.8-35.4); Mean Corpuscular Hemoglobin 29.5 pg (27.0-31.2); Mean Corpuscular Volume 89.5 fl (80-94); Mean Platelet Volume 8.8 fl (7.4-10.4); Monocytes # 0.5 K/mm3 (0.1-1.0); Monocytes % 8.7 % (1.7-9.3); Neutrophils # 3.8 K/mm3 (1.8-7.8); Neutrophils % 64.6 % (37.0-80.0); Platelet Count 196 K/mm3 (142-424); Red Blood Count 4.97 M/mm3 (4.60-6.20); Red Cell Distribution Width 14.3 % (11.5-17.5); White Blood Count 5.8 K/mm3 (4.8-10.8)
[2023-09-24 18:16] LABS: Alanine Aminotransferase 32 U/L (12-78); Albumin Level 4.1 g/dl (3.5-5.0); Albumin/Globulin Ratio 1.6 (1.1-1.8); Alkaline Phosphatase 139 U/L (38-126); Anion Gap 10.2 mEq/L (5-15); Aspartate Amino Transferase 35 U/L (17-59); Bilirubin,Total 0.7 mg/dl (0.2-1.3); Blood Urea Nitrogen 10 mg/dl (9-20); Calcium 8.9 mg/dl (8.4-10.2); Carbon Dioxide 26 mmol/L (22.0-30.0); Chloride 104 mmol/L (98-107); Chol/HDL Ratio 4.9 (1-3.5); Cholesterol 128 mg/dl (140-200); Estimated Glomerular Filt Rate 135 ml/min (>60); GFR (African American) 163 ML/MIN (>60); Globulin 2.6 g/dL (1.3-3.2); Glucose 302 mg/dl (74-100); HDL Cholesterol 26 mg/dl (40-60); Potassium 4.2 mmoL/L (3.5-5.1); Sodium 136 mmol/L (136-145); Total Protein,Serum 6.7 g/dl (6.3-8.2); Triglycerides 232 mg/dl (30-150); VLDL Cholesterol 46 mg/dL (0-40)
[2023-09-24 18:27] LABS: Direct LDL Cholesterol 48.25 mg/dL (100-129)
[2023-09-24 18:45] LABS: Prostate Specific Ag Screen 0.3 ng/ml (0.0-4.0)
[2023-09-24 20:15] LABS: Creatinine,Urine Random 59 mg/dL (Not Estab.)
[2023-09-24 20:19] LABS: Microalbumin/Creatinine Ratio 44.2
== END 2023-09-24 23:59 | disposition home or self-care (01) ==
LOC: LAB.DROPOF 09-25 08:47
PROVIDERS: PCP Internal Medicine; Visit Provider Internal Medicine
DX: I10 Essential (primary) hypertension (principal); E11.59 Type 2 diabetes mellitus with other circulatory complications; E78.5 Hyperlipidemia, unspecified; E11.69 Type 2 diabetes mellitus with other specified complication; Z12.5 Encounter for screening for malignant neoplasm of prostate
CPT/HCPCS: 80053; 80061; 82043; 82570; 83036; 85025; G0103

== ENCOUNTER 2024-11-22 09:20 | Outpatient (CLI) | payer MEDICARE, OTHER, SELFPAY ==
[2024-11-22 16:06] LABS: Hematocrit 45.0 % (42.0-52.0); Hemoglobin 14.5 g/dL (14.1-18.0); Immature Granulocytes % 0.4 %; Mean Corpuscular HGB Conc 32.2 g/dL (31.8-35.4); Mean Corpuscular Hemoglobin 28.1 pg (27.0-31.2); Mean Corpuscular Volume 87.2 fl (80-94); Nucleated Red Blood Cells % 0 %; Platelet Count 217 K/mm3 (142-424); Red Blood Count 5.16 M/mm3 (4.60-6.20); Red Cell Distribution Width-SD 43.4 fL; White Blood Count 6.9 K/mm3 (4.8-10.8)
[2024-11-22 16:40] LABS: Alanine Aminotransferase 33 U/L (12-78); Albumin Level 4.4 g/dl (3.5-5.0); Albumin/Globulin Ratio 1.8 (1.1-1.8); Alkaline Phosphatase 97 U/L (38-126); Anion Gap 14.5 mEq/L (5-15); Aspartate Amino Transferase 39 U/L (17-59); Bilirubin,Total 0.9 mg/dl (0.2-1.3); Blood Urea Nitrogen 12 mg/dl (9-20); Calcium 8.8 mg/dl (8.4-10.2); Carbon Dioxide 26 mmol/L (22.0-30.0); Chloride 99 mmol/L (98-107); Cholesterol 107 mg/dl (140-200); Creatinine,Serum 0.70 mg/dl (0.66-1.25); Estimated Glomerular Filt Rate 112 ml/min (>60); GFR (African American) 136 ML/MIN (>60); Globulin 2.5 g/dL (1.3-3.2); Glucose 246 mg/dl (74-100); HDL Cholesterol 30 mg/dl (40-60); Potassium 4.5 mmoL/L (3.5-5.1); Sodium 135 mmol/L (136-145); Total Protein,Serum 6.9 g/dl (6.3-8.2); Triglycerides 113 mg/dl (30-150)
[2024-11-22 17:02] LABS: Hemoglobin A1C 12.1 % (4.0-6.0)
--- OUTSIDE RECORDS SUMMARY | 2024-11-23 10:17 | XMS_ITS | Clinical Summary ---
Author Organization [facility] Address [address] [place] [address] Care Team Providers Care Microphone Operator Name Role Phone Colton Rosario MD Primary Care Provider [phone] Allergies No known active allergies Medications losartan (COZAAR) 100 MG tablet Take 1 tablet by mouth Daily. Active atorvastatin (LIPITOR) 40 MG tablet Take 1 tablet by mouth Every Night. Active metFORMIN (GLUCOPHAGE) 500 MG tablet Take 1 tablet by mouth 2 (Two) Times a Day With Meals. Active spironolactone (ALDACTONE) 25 MG tablet Take 1 tablet by mouth Daily. Active Multiple Vitamins-Minerals (MULTI COMPLETE PO) Take 1 tablet by mouth Daily. Active minocycline (MINOCIN,DYNACIN) 100 MG capsule As Needed. 2 Active metoprolol succinate XL (TOPROL-XL) 100 MG 24 hr tablet Take 0.5 tablets by mouth 2 (Two) Times a Day. 2 Active albuterol sulfate HFA 108 (90 Base) MCG/ACT inhaler Inhale 2 puffs Every 4 (Four) Hours As Needed. 2 Active flecainide (TAMBOCOR) 100 MG tabletIndications :Persistent atrial fibrillation Take 1 tablet by mouth 2 (Two) Times a Day. 60 tablet 11 3 Active Jardiance 25 MG tablet tablet Take 1 tablet by mouth Daily. 3 Active rivaroxaban (XARELTO) 20 MG tablet Take 1 tablet by mouth Daily. First dose tommorrow 30 tablet 6 3 Active Active Problems Problem Noted Date Diagnosed Date Afib 02/06/2021 Hypertension Immunizations Immunization Administration Dates Next Due Td (TDVAX) 05/18/1996 Family History Medical History Relation Name Comments No Known Problems Brother Cancer Father No Known Problems Mother Heart attack Paternal Grandfather Eddie Jordan No Known Problems Sister Relation Name Status Comments Brother Alive Father Mother Alive Paternal Grandfather Eddie Jordan Sister Alive Social History Tobacco Use Types Packs/Day Years Used Date Smoking Tobacco: Never Smokeless Tobacco: Never Tobacco Cessation:Counseling Given: Not Answered Alcohol Use Standard Drinks/Week Comments Never 0 (1 standard drink = 0.6 oz pur e alcohol) AUDIT-C Answer Date Recorded Q1: How often do you have a drink containing alcohol? Never 06/05/2021 Q2: How many drinks containi ng alcohol do you have on a typical day when you are drinking? Patient does not drink Q3: How often do you have si x or more drinks on one occasion? Never 06/05/2021 Sex and Gender Information Value Date Recorded Sex Assigned at Not on file Legal Sex Male 9:09 AM EDT Gender Identity Not on file Sexual Orientation Not on file Last Filed Vital Signs Vital Sign Reading Time Taken Comments Blood Pressure 142/78 05/20/2024 1:58 PM EST Pulse 88 05/20/2024 1:58 PM EST Temperature 36.4 C (97.5 F) 06/05/2021 8:10 AM EDT Respiratory Rate 18 05/01/2022 2:07 PM EST Oxygen Saturation 97% 05/20/2024 1:58 PM EST Inhaled Oxygen Concentration - - Weight 104 kg (229 lb 12.8 oz) 05/20/2024 1:58 P M EST Height 185.4 cm (6' 1 ) 05/20/2024 1:58 PM EST Body Mass Index 30.32 05/20/2024 1:58 PM EST Plan of Treatment Upcoming Encounters Date Type Department Care Team (Late st Contact Info) Description 07/27/2025 2:45 PM EDT Office Visit [facility] [address] [place] [phone] Mundo Whaley MD [address] [place] [id number] Health Maintenance Due Date Last Done Comments COLOGUARD 2002 COLON CANCER SCREENING 5 YEA R SIGMOIDOSCOPY 2002 COLONOSCOPY 2002 COL[address] CANCER SCREENING 2002 CT COLONOGRAPHY 2002 FECAL OCCULT BLOOD TEST 2002 FIT Testing (1 year) 2002 TDAP/TD VACCINES (2 - Tdap) 05/18/2006 05/18/1996 Pneumococcal Vaccine 50+ (1 of 1 - PCV) 06/22/2007 ZOSTER VACCINE (1 of 2) 06/22/2007 ANNUAL WELLNESS VISIT 10/07/2016 HEPATITIS C SCREENING 10/07/2016 PT PLAN OF CARE 10/07/2016 COVID-19 Vaccine (2023- 5 season) 2024 01/08/2024, 11/13/2021, 12/20/2020, Additional history exists INFLUENZA VACCINE 12/15/2024 01/08/2024, 12/06/2020 Insurance MEDICARE A & B [facility] Care Teams Microphone Operator Relationship Specialty Start Date End Date Colton Rosario MD [address] [place] [facility] [address] [place] [id number] PCP - General Internal Medicine 10/07/16
== END 2024-11-22 23:59 ==
LOC: LAB.DROPOF 11-23 10:08
PROVIDERS: PCP Internal Medicine; Visit Provider Internal Medicine
DX: E11.59 Type 2 diabetes mellitus with other circulatory complications (principal); I10 Essential (primary) hypertension; E78.5 Hyperlipidemia, unspecified; I48.91 Unspecified atrial fibrillation; Z12.5 Encounter for screening for malignant neoplasm of prostate
CPT/HCPCS: 36415; 80053; 80061; 82043; 82570; 83036; 85025; G0103